=== PATIENT | female | born 1950 | race Caucasian/White ===

== ENCOUNTER 2018-03-18 23:23 | Inpatient (IN) | payer MEDICARE, MEDICAID ==
[~2018-03-18] VITALS: Ht 157.5 cm; Wt 64.4 kg
[2018-03-19] VITALS (76 sets, daily range): BP systolic 69–124; BP diastolic 21–73
[2018-03-19] MEDS ORDERED: SODIUM CHLORIDE 0.9% 1000ML BAG (SEPSIS BOLUS) IV ONE
[2018-03-19 00:02] LABS: CHLORIDE 109 mEq/L (98-107)
[2018-03-19 00:06] LABS: ETHANOL BLOOD < 10 mg/dL
[2018-03-19] MEDS ORDERED: SODIUM CHLORIDE 0.9% 1,000 ML IV ONE ×2 (00:15→02:45)
[2018-03-19] MEDS ORDERED: NOREPINEPHRINE 4 MG in DEXT 5% WATER 246 ML IV ONE (00:30)
[2018-03-19] MEDS ORDERED: PIPERACILLIN/TAZOBACTAM 3.375GM/50ML PREMIX IV ONE (00:30)
[2018-03-19] MEDS: VANCOMYCIN 1 G PREMIX 200 ML IV SCH ×2 (00:30→00:48)
[2018-03-19 00:34] LABS: CLARITY URINE CLOUDY (CLEAR); COLOR URINE YELLOW (YELLOW); KETONES URINE NEGATIVE (NEGATIVE); LEUKOCYTE ESTERASE URINE NEGATIVE (NEGATIVE); NITRITE URINE NEGATIVE (NEGATIVE); OCCULT BLOOD URINE NEGATIVE (NEGATIVE); PROTEIN URINE NEGATIVE (NEGATIVE); SPECIFIC GRAVITY URINE 1.021 (1.005-1.030); UROBILINOGEN URINE 0.2 E.U./dL (0.2-1.0)
[2018-03-19 00:44] LABS: *BARBITURATES SCREEN URINE NEGATIVE (NEGATIVE); *BENZODIAZEPINES SCREEN URINE NEGATIVE (NEGATIVE); *COCAINE SCREEN URINE NEGATIVE (NEGATIVE); METHADONE URINE SCREEN NEGATIVE (NEGATIVE); OPIATES URINE SCREEN NEGATIVE (NEGATIVE)
[2018-03-19 00:45] LABS: *AMPHETAMINES SCREEN URINE NEGATIVE (NEGATIVE); CANNABINOID URINE SCREEN NEGATIVE (NEGATIVE); PHENCYCLIDINE URINE SCREEN NEGATIVE (NEGATIVE)
[2018-03-19] MEDS ORDERED: ASPIRIN 300MG SUPP PR ONE (00:45)
[2018-03-19] MEDS ORDERED: NOREPINEPHRINE 4 MG in DEXT 5% WATER 246 ML IV SCH (00:45)
[2018-03-19 01:58] LABS: INR 1.4; PROTHROMBIN TIME 14.7 sec (9.4-11.6)
[2018-03-19 01:59] LABS: AMMONIA 46 uMol/L (<32)
[2018-03-19 02:02] LABS: HEMATOCRIT. 41.3 % (36.0-48.0); HEMOGLOBIN. 13.2 g/dL (12.0-16.0); MEAN CORPUSCULAR HEMOGLOBIN 31.2 pg (28.0-32.0); MEAN CORPUSCULAR VOLUME 97.4 fL (81.0-99.0); MEAN PLATELET VOLUME 10.7 fl (7.4-10.4); PLATELET 127 x1000/uL (130-400); RED BLOOD CELL COUNT 4.24 mill/uL (4.2-5.4); RED CELL DISTRIBUTION WIDTH 15.1 % (11.6-14.6)
[2018-03-19 02:16] LABS: PLATELET ESTIMATE SLIGHTLY DECREASED
[2018-03-19] MEDS ORDERED: SODIUM CHLORIDE 0.9% 1,000 ML IV SCH (03:47)
[2018-03-19] MEDS ORDERED: DIPHENHYDRAMINE 50MG/ML VIAL IV PRN (04:00)
[2018-03-19] MEDS ORDERED: ACETAMINOPHEN 325MG TABLET PO PRN (04:00)
[2018-03-19] MEDS ORDERED: VANCOMYCIN 1 G PREMIX 200 ML IV SCH (04:00)
[2018-03-19] MEDS ORDERED: LEVOFLOXACIN 500MG PREMIX 100 ML IV SCH ×2 (04:00→06:00)
[2018-03-19] MEDS ORDERED: DEXTROSE 50% WATER 50ML SYRINGE IV PRN ×2 (04:00→19:15)
[2018-03-19] MEDS ORDERED: NOREPINEPHRINE 4 MG in DEXT 5% WATER 246 ML IV PRN ×2 (04:00→04:15)
[2018-03-19] MEDS ORDERED: METF10004 PO (04:32)
[2018-03-19] MEDS ORDERED: MULT-1116 PO (04:32)
[2018-03-19] MEDS ORDERED: ASPI-1158 PO (04:32)
[2018-03-19] MEDS ORDERED: MULT1TAB63 PO (04:32)
[2018-03-19] MEDS ORDERED: SODIUM BICARBONATE 8.4% 1 MEQ/ML 50ML SYR IV SCH ×2 (05:00→07:30)
[2018-03-19 05:49] LABS: HEMATOCRIT. 39.1 % (36.0-48.0); HEMOGLOBIN. 12.5 g/dL (12.0-16.0); MEAN CORPUSCULAR HEMOGLOBIN 31.2 pg (28.0-32.0); MEAN CORPUSCULAR VOLUME 97.7 fL (81.0-99.0); MEAN PLATELET VOLUME 11.5 fl (7.4-10.4); PLATELET 130 x1000/uL (130-400); RED CELL DISTRIBUTION WIDTH 15.1 % (11.6-14.6)
[2018-03-19] MEDS ORDERED: NOREPINEPHRINE 16 MG in DEXT 5% WATER 250 ML IV PRN (06:00)
[2018-03-19 06:02] LABS: CHLORIDE 111 mEq/L (98-107)
[2018-03-19] MEDS: INSULIN LISPRO 100 UNITS/ML SUBCUT SCH ×4 (06:06→22:27)
[2018-03-19] MEDS: BLOOD SUGAR DIAGNOSTIC STRIP TEST SCH ×4 (06:06→20:56)
[2018-03-19] MEDS ORDERED: LIDOCAINE HCL 1% 20ML VIAL (Pyxis) INJ ONE (07:38)
[2018-03-19] MEDS: PANTOPRAZOLE SODIUM 40 MG/VIAL IV SCH (07:48)
[2018-03-19 08:01] LABS: BG BASE EXCESS -12.9 mmol/L (-2.0-2.0); BG CARBOXYHEMOGLOBIN 0.3 % (0.5-1.5); BG DEOXYHEMOGLOBIN 2.9 % (0.0-5.0); BG FRACTION INSPIRED OXYGEN 28; BG HCO3 ACT 9.6 mmol/L (22.0-26.0); BG METHEMOGLOBIN 0.3 % (0.0-1.5); BG OXYGEN SATURATION 97.1 % (92.0-98.5); BG OXYHEMOGLOBIN 96.5 % (94.0-97.0); BG PCO2 16.3 mmHg (35.0-45.0); BG PH 7.387 (7.350-7.450); BG SAMPLE SITE RIGHT RADIAL; BG TOTAL HEMOGLOBIN 12.1 g/dL (12.0-18.0); BG VENT MODE NASAL CANNULA
[2018-03-19 08:46] LABS: NUCLEATED RED BLOOD CELLS 2 /100 WBC
[2018-03-19] MEDS: SODIUM BICARBONATE 50 MEQ in DEXTROSE 5% WATER 1,000 ML IV SCH ×2 (08:46→18:25)
[2018-03-19 08:47] LABS: PLATELET ESTIMATE NORMAL
[2018-03-19] MEDS: PHENYLEPHRINE 40 MG in DEXT 5% WATER 246 ML IV PRN ×3 (08:47→16:44)
[2018-03-19] MEDS: ONDANSETRON HCL 4MG/2ML VIAL IV PRN ×2 (08:48→18:24)
[2018-03-19] MEDS: METRONIDAZOLE 500 MG PREMIX 100 ML IV SCH ×2 (10:00→18:24)
[2018-03-19 10:59] LABS: CARCINO EMBRYONIC ANTIGEN 2.3 ng/ml
[2018-03-19] MEDS ORDERED: NOREPINEPHRINE 16 MG in DEXT 5% WATER 234 ML IV PRN (11:00)
[2018-03-19 11:10] LABS: HEPATITIS B SURFACE ANTIGEN NEGATIVE
[2018-03-19 11:38] LABS: HEPATITIS B CORE AB IGM NEGATIVE
[2018-03-19 11:39] LABS: HEPATITIS A AB IGM NEGATIVE (NEGATIVE)
[2018-03-19] MEDS ORDERED: INSULIN LISPRO 100 UNITS/ML SUBCUT SCH ×2 (13:45→21:00)
[2018-03-19] MEDS ORDERED: CEFTRIAXONE 1 G PREMIX 50 ML IV SCH (14:00)
[2018-03-19 15:27] LABS: CREATINE KINASE 1437 IU/L (26-192)
[2018-03-19] MEDS: CEFTRIAXONE 1 G PREMIX 50 ML IV SCH (16:00)
[2018-03-19] MEDS ORDERED: NOREPINEPHRINE 16 MG in SODIUM CHLORIDE 0.9% 234 ML IV PRN (19:30)
[2018-03-19] MEDS: SODIUM BICARBONATE 50 MEQ in SODIUM CHLORIDE 0.45% 1,000 ML IV SCH (20:54)
[2018-03-19] MEDS: PHENYLEPHRINE 40 MG in SODIUM CHLORIDE 0.9% 246 ML IV PRN ×2 (20:57→23:58)
[2018-03-19] MEDS ORDERED: INSULIN GLARGINE UD 100 UNITS/ML SYR SUBCUT SCH (22:00)
[2018-03-20] VITALS (87 sets, daily range): BP systolic 87–139; BP diastolic 35–110
[2018-03-20] MEDS ORDERED: VANCOMYCIN 750 MG PREMIX 150 ML IV SCH (01:00)
[2018-03-20] MEDS: METRONIDAZOLE 500 MG PREMIX 100 ML IV SCH ×3 (02:43→18:05)
[2018-03-20] MEDS ORDERED: PHENYLEPHRINE 80 MG in DEXT 5% WATER 492 ML IV PRN (03:30)
[2018-03-20 05:33] LABS: AMMONIA 15 uMol/L (<32); HEMATOCRIT. 33.5 % (36.0-48.0); HEMOGLOBIN. 11.2 g/dL (12.0-16.0); MEAN CORPUSCULAR HEMOGLOBIN 31.4 pg (28.0-32.0); MEAN CORPUSCULAR VOLUME 94.1 fL (81.0-99.0); MEAN PLATELET VOLUME 11.3 fl (7.4-10.4); PLATELET 78 x1000/uL (130-400); RED BLOOD CELL COUNT 3.56 mill/uL (4.2-5.4); RED CELL DISTRIBUTION WIDTH 14.6 % (11.6-14.6)
[2018-03-20] MEDS: INSULIN LISPRO 100 UNITS/ML SUBCUT SCH ×4 (06:30→20:49)
[2018-03-20] MEDS: SODIUM BICARBONATE 50 MEQ in SODIUM CHLORIDE 0.45% 1,000 ML IV SCH ×2 (06:36→20:09)
[2018-03-20] MEDS: BLOOD SUGAR DIAGNOSTIC STRIP TEST SCH ×4 (06:37→20:43)
[2018-03-20] MEDS: ONDANSETRON HCL 4MG/2ML VIAL IV PRN (06:47)
[2018-03-20 07:29] LABS: PLATELET ESTIMATE DECREASED
[2018-03-20] MEDS: PHENYLEPHRINE 80 MG in SODIUM CHLORIDE 0.9% 492 ML IV PRN ×2 (08:02→21:48)
[2018-03-20] MEDS: PANTOPRAZOLE SODIUM 40 MG/VIAL IV SCH (09:16)
[2018-03-20 09:30] LABS: BG BASE EXCESS -6.7 mmol/L (-2.0-2.0); BG CARBOXYHEMOGLOBIN 0.3 % (0.5-1.5); BG DEOXYHEMOGLOBIN 6.4 % (0.0-5.0); BG FRACTION INSPIRED OXYGEN 28; BG METHEMOGLOBIN 0.2 % (0.0-1.5); BG OXYGEN SATURATION 93.6 % (92.0-98.5); BG OXYHEMOGLOBIN 93.1 % (94.0-97.0); BG PH 7.473 (7.350-7.450); BG PO2 69.8 mmHg (75.0-100.0); BG SAMPLE SITE RIGHT RADIAL; BG TOTAL HEMOGLOBIN 11.4 g/dL (12.0-18.0); BG VENT MODE NASAL CANNULA
[2018-03-20 10:08] LABS: ALPHA FETOPROTEIN TUMOR MARKER 1.2 ng/mL (0.0-8.3); CANCER ANTIGEN 125 6.9 U/mL (0.0-38.1)
[2018-03-20 11:49] LABS: D-DIMER 23.78 mg/L FEU (<0.50); INR 1.8; PARTIAL THROMBOPLASTIN TIME 51.3 sec (23.4-31.0); PROTHROMBIN TIME 18.7 sec (9.4-11.6)
[2018-03-20] MEDS: CEFTRIAXONE 1 G PREMIX 50 ML IV SCH (14:15)
[2018-03-20] MEDS: SUCRALFATE 1 G/10 ML UDC PO SCH ×2 (17:32→20:49)
[2018-03-20] MEDS: ACETAMINOPHEN 650MG/20.3ML UDC PO PRN (18:06)
[2018-03-20] MEDS: INSULIN GLARGINE UD 100 UNITS/ML SYR SUBCUT SCH (21:50)
[2018-03-21] VITALS (58 sets, daily range): BP systolic 87–179; BP diastolic 42–72
[2018-03-21] MEDS: METRONIDAZOLE 500 MG PREMIX 100 ML IV SCH ×3 (02:37→18:08)
[2018-03-21] MEDS: ACETAMINOPHEN 650MG/20.3ML UDC PO PRN ×2 (05:09→08:42)
[2018-03-21] MEDS: SUCRALFATE 1 G/10 ML UDC PO SCH ×4 (05:33→21:24)
[2018-03-21] MEDS: SODIUM BICARBONATE 50 MEQ in SODIUM CHLORIDE 0.45% 1,000 ML IV SCH (05:34)
[2018-03-21 06:07] LABS: HEMATOCRIT 32.1 % (36.0-48.0); HEMOGLOBIN 10.8 g/dL (12.0-16.0); MEAN CORPUSCULAR HEMOGLOBIN 31.2 pg (28.0-32.0); MEAN CORPUSCULAR VOLUME 93.4 fL (81.0-99.0); RED BLOOD CELL COUNT 3.44 mill/uL (4.2-5.4); RED CELL DISTRIBUTION WIDTH 14.7 % (11.6-14.6)
[2018-03-21 06:12] LABS: PLATELET 40 x1000/uL (130-400)
[2018-03-21] MEDS: INSULIN LISPRO 100 UNITS/ML SUBCUT SCH ×4 (06:21→21:32)
[2018-03-21] MEDS: BLOOD SUGAR DIAGNOSTIC STRIP TEST SCH ×4 (06:21→21:26)
[2018-03-21 06:36] LABS: PHOSPHORUS 2.8 mg/dL (2.5-4.9)
[2018-03-21] MEDS: PANTOPRAZOLE SODIUM 40 MG/VIAL IV SCH (09:16)
[2018-03-21] MEDS ORDERED: POTASSIUM CHLORIDE INJ 40 MEQ in DEXT 5% WATER 250 ML IV ONE (11:30)
[2018-03-21] MEDS: KCL 20MEQ/100ML PREMIX 100 ML IV SCH ×2 (12:59→15:59)
[2018-03-21] MEDS: CEFTRIAXONE 1 G PREMIX 50 ML IV SCH ×2 (14:00→16:18)
[2018-03-21] MEDS: SODIUM CHLORIDE 0.45% 1,000 ML IV SCH (15:42)
[2018-03-21] MEDS: INSULIN GLARGINE UD 100 UNITS/ML SYR SUBCUT SCH (21:33)
[2018-03-22] VITALS (13 sets, daily range): BP systolic 98–144; BP diastolic 42–76
[2018-03-22] MEDS: METRONIDAZOLE 500 MG PREMIX 100 ML IV SCH ×2 (02:12→09:16)
[2018-03-22] MEDS: SODIUM CHLORIDE 0.45% 1,000 ML IV SCH (06:16)
[2018-03-22] MEDS: BLOOD SUGAR DIAGNOSTIC STRIP TEST SCH ×4 (07:30→20:49)
[2018-03-22] MEDS: INSULIN LISPRO 100 UNITS/ML SUBCUT SCH ×4 (08:00→20:52)
[2018-03-22] MEDS: SUCRALFATE 1 G/10 ML UDC PO SCH ×4 (08:38→20:47)
[2018-03-22] MEDS: PANTOPRAZOLE SODIUM 40 MG/VIAL IV SCH (08:38)
[2018-03-22 10:22] LABS: BASOPHILS % 0.5 % (0.0-2.0); EOSINOPHILS % 0.2 % (0.0-5.0); HEMATOCRIT. 31.7 % (36.0-48.0); HEMOGLOBIN. 10.9 g/dL (12.0-16.0); LYMPHOCYTES % 10.3 % (20.0-50.0); MEAN CORPUSCULAR HEMOGLOBIN 32.1 pg (28.0-32.0); MEAN CORPUSCULAR VOLUME 93.7 fL (81.0-99.0); MEAN PLATELET VOLUME 12.3 fl (7.4-10.4); MONOCYTES % 5.4 % (2.0-8.0); NEUTROPHILS % 83.6 % (40.0-76.0); RED BLOOD CELL COUNT 3.39 mill/uL (4.2-5.4); RED CELL DISTRIBUTION WIDTH 15.4 % (11.6-14.6)
[2018-03-22 10:25] LABS: PLATELET 27 x1000/uL (130-400)
[2018-03-22 10:29] LABS: CHLORIDE 110 mEq/L (98-107)
[2018-03-22] MEDS ORDERED: POTASSIUM CHLORIDE 20MEQ/PACKET PO NR (11:45)
[2018-03-22] MEDS: INSULIN GLARGINE UD 100 UNITS/ML SYR SUBCUT SCH (20:53)
[2018-03-23] VITALS (12 sets, daily range): BP systolic 112–149; BP diastolic 62–78
[2018-03-23 06:20] LABS: HEMATOCRIT. 34.6 % (36.0-48.0); HEMOGLOBIN. 11.8 g/dL (12.0-16.0); MEAN CORPUSCULAR HEMOGLOBIN 31.7 pg (28.0-32.0); MEAN CORPUSCULAR VOLUME 92.9 fL (81.0-99.0); RED BLOOD CELL COUNT 3.73 mill/uL (4.2-5.4); RED CELL DISTRIBUTION WIDTH 15.1 % (11.6-14.6)
[2018-03-23] MEDS: BLOOD SUGAR DIAGNOSTIC STRIP TEST SCH ×4 (07:28→20:52)
[2018-03-23] MEDS: INSULIN LISPRO 100 UNITS/ML SUBCUT SCH ×4 (07:28→21:16)
[2018-03-23] MEDS: SUCRALFATE 1 G/10 ML UDC PO SCH ×4 (07:38→20:50)
[2018-03-23 08:13] LABS: PLATELET 23 x1000/uL (130-400)
[2018-03-23 09:05] LABS: PLATELET ESTIMATE MARKEDLY DECREASED
[2018-03-23] MEDS ORDERED: POTASSIUM CHLORIDE 20MEQ/PACKET PO NR (09:30)
[2018-03-23] MEDS: METRONIDAZOLE 500MG TABLET PO SCH ×2 (13:24→20:50)
[2018-03-23] MEDS: INSULIN GLARGINE UD 100 UNITS/ML SYR SUBCUT SCH (21:16)
[2018-03-24] VITALS (12 sets, daily range): BP systolic 110–129; BP diastolic 58–75
[2018-03-24 06:37] LABS: HEMATOCRIT. 34.5 % (36.0-48.0); HEMOGLOBIN. 11.6 g/dL (12.0-16.0); MEAN CORPUSCULAR HEMOGLOBIN 31.3 pg (28.0-32.0); MEAN CORPUSCULAR VOLUME 92.9 fL (81.0-99.0); RED BLOOD CELL COUNT 3.72 mill/uL (4.2-5.4); RED CELL DISTRIBUTION WIDTH 15.1 % (11.6-14.6)
[2018-03-24 06:59] LABS: PLATELET 38 x1000/uL (130-400)
[2018-03-24] MEDS: SUCRALFATE 1 G/10 ML UDC PO SCH ×4 (07:30→21:25)
[2018-03-24] MEDS: BLOOD SUGAR DIAGNOSTIC STRIP TEST SCH ×4 (07:30→21:15)
[2018-03-24] MEDS: INSULIN LISPRO 100 UNITS/ML SUBCUT SCH ×4 (08:00→21:26)
[2018-03-24] MEDS: METRONIDAZOLE 500MG TABLET PO SCH ×2 (09:24→21:26)
[2018-03-24] MEDS: ACETAMINOPHEN 650MG/20.3ML UDC PO PRN (10:35)
[2018-03-24 11:02] LABS: PHOSPHORUS 2.5 mg/dL (2.5-4.9)
[2018-03-24] MEDS ORDERED: LIDOCAINE 5% PATCH TOP SCH (12:15)
[2018-03-24] MEDS: ACETAMINOPHEN 500MG TABLET PO SCH ×2 (12:30→18:00)
[2018-03-24] MEDS ORDERED: ACETAMINOPHEN 650MG/20.3ML UDC PO PRN (12:30)
[2018-03-24] MEDS: METHYL SALICYLATE/MENTHOL CREAM 85GM TOP SCH ×2 (13:00→18:00)
[2018-03-24] MEDS: ACYCLOVIR 400 MG TABLET PO SCH ×2 (14:00→21:26)
[2018-03-24 15:34] LABS: PLATELET ESTIMATE MARKEDLY DECREASED
[2018-03-24] MEDS ORDERED: MAGNESIUM 4 G PREMIX 100 ML IV SCH (17:00)
[2018-03-24] MEDS: INSULIN GLARGINE UD 100 UNITS/ML SYR SUBCUT SCH (23:33)
== END 2018-03-24 23:45 | disposition home health service (06) | DRG 871 ==
LOC: ER 23:59 → EDBD 03-19 02:55 → ENRESERV 03-19 02:55 → MICUSO 03-19 02:55 → ER 03-19 04:34 → MICUNO 03-19 04:59 → 5EST 03-21 15:15
PROVIDERS: ADMIT Internal Medicine; ATTEND Internal Medicine
PROC: 02HV33Z Insertion of Infusion Device into Superior Vena Cava, Percutaneous Approach (ICD-10-PCS; principal; 2018-03-19)
PROC: B548ZZA Ultrasonography of Superior Vena Cava, Guidance (ICD-10-PCS; 2018-03-19)
DX: A41.9 Sepsis, unspecified organism (principal); E43 Unspecified severe protein-calorie malnutrition; R65.21 Severe sepsis with septic shock; J18.9 Pneumonia, unspecified organism; K72.00 Acute and subacute hepatic failure without coma; J96.01 Acute respiratory failure with hypoxia; G93.40 Encephalopathy, unspecified; N17.0 Acute kidney failure with tubular necrosis; D68.9 Coagulation defect, unspecified; N39.0 Urinary tract infection, site not specified; E87.2 Acidosis; E11.65 Type 2 diabetes mellitus with hyperglycemia; D69.6 Thrombocytopenia, unspecified; K52.9 Noninfective gastroenteritis and colitis, unspecified; R13.10 Dysphagia, unspecified; R26.9 Unspecified abnormalities of gait and mobility; D64.9 Anemia, unspecified; M25.561 Pain in right knee; E83.42 Hypomagnesemia; Z90.710 Acquired absence of both cervix and uterus; Z83.3 Family history of diabetes mellitus; Z79.899 Other long term (current) drug therapy; Z79.82 Long term (current) use of aspirin; Z79.84 Long term (current) use of oral hypoglycemic drugs; Z68.26 Body mass index [BMI] 26.0-26.9, adult
CPT/HCPCS: 36415; 36556; 36569; 36600; 51702; 70450; 71045; 71250; 73560; 74176; 76700; 76937; 80048; 80053; 80076; 80305; 81003; 82105; 82140; 82375; 82378; 82550; 82705; 82805; 82962; 83036; 83605; 83690; 83735; 84100; 84443; 84484; 85025; 85027; 85362; 85379; 85384; 85610; 85730; 86304; 86705; 86709; 86803; 86850; 86900; 87015; 87040; 87045; 87086; 87340; 87427; 87449; 87493; 89055; 92610; 93005; 93970; 96365; 96366; 96368; 99291; A6261; C1725; C9113; G0482; J0696; J1815; J1956; J2370; J2405; J3370; J3475; J3480; J3490; J7030; J7040; J7050; J7060; J7070; A4315

== ENCOUNTER 2018-10-23 15:38 | Emergency (ER) | payer MEDICAID, MEDICARE ==
[~2018-10-23] VITALS: Ht 154.9 cm; Wt 55.0 kg
[~2018-10-23 15:38] MED LIST: ASPI-1158 PO; METF-416 PO; MULT-1116 PO; MULT1TAB63 PO
[2018-10-23] MEDS ORDERED: KETOROLAC 30MG/ML VIAL IM ONE (17:15)
[2018-10-23 18:03] VITALS: BP 121/58
== END 2018-10-23 18:05 | disposition home or self-care (01) ==
LOC: ER 15:38
DX: S70.01XA Contusion of right hip, initial encounter (principal); M25.551 Pain in right hip; E11.9 Type 2 diabetes mellitus without complications; I10 Essential (primary) hypertension; E78.00 Pure hypercholesterolemia, unspecified; W01.0XXA Fall on same level from slipping, tripping and stumbling without subsequent striking against object, initial encounter; Y93.9 Activity, unspecified; Y92.9 Unspecified place or not applicable; Z79.82 Long term (current) use of aspirin
CPT/HCPCS: 73502; 96372; 99283; J1885

== ENCOUNTER 2018-11-07 09:39 | Emergency (ER) | payer MEDICARE ==
[~2018-11-07] VITALS: Ht 152.4 cm; Wt 58.0 kg
[2018-11-07] MEDS ORDERED: KETOROLAC 30MG/ML VIAL IM ONE (14:45)
[2018-11-07 16:49] VITALS: BP 104/63
== END 2018-11-07 17:30 | disposition home or self-care (01) ==
LOC: ER 09:39
DX: M16.11 Unilateral primary osteoarthritis, right hip (principal); E11.9 Type 2 diabetes mellitus without complications; I10 Essential (primary) hypertension; E78.00 Pure hypercholesterolemia, unspecified; Z79.82 Long term (current) use of aspirin; Z79.899 Other long term (current) drug therapy
CPT/HCPCS: 72170; 96372; 99283; J1885

== ENCOUNTER 2020-11-11 18:46 | Emergency (ER) | payer MEDICARE, MEDICAID ==
[~2020-11-11] VITALS: Ht 152.4 cm; Wt 58.2 kg
[~2020-11-11 18:46] MED LIST changes: -ASPI-1158 PO; +ASPI-1406 PO
[2020-11-11 19:55] LABS: BASOPHILS % 0.9 % (0.0-2.0); EOSINOPHILS % 3.7 % (0.0-5.0); HEMATOCRIT. 33.1 % (36.0-48.0); HEMOGLOBIN. 11.3 g/dL (12.0-16.0); LYMPHOCYTES % 37.3 % (20.0-50.0); MEAN CORPUSCULAR HEMOGLOBIN 31.1 pg (28.0-32.0); MEAN CORPUSCULAR VOLUME 91.5 fL (81.0-99.0); MEAN PLATELET VOLUME 9.7 fl (7.4-10.4); NEUTROPHILS % 50.1 % (40.0-76.0); PLATELET 180 x1000/uL (130-400); RED BLOOD CELL COUNT 3.62 mill/uL (4.2-5.4)
[2020-11-11 19:58] LABS: CHLORIDE 105 mEq/L (98-107)
[2020-11-11] MEDS ORDERED: VALA100044 MT (22:33)
[2020-11-11] MEDS ORDERED: MED4 MT (22:34)
[2020-11-11] MEDS ORDERED: MINE3.5O4 OP (22:35)
[2020-11-11] MEDS ORDERED: ERYTHROMYCIN BASE 0.5% OPHTH OINT 3.5GM EACHEYE SCH (22:45)
[2020-11-11 22:56] VITALS: BP 153/55
== END 2020-11-11 23:08 | disposition home or self-care (01) ==
LOC: ER 18:46
DX: G51.0 Bell's palsy (principal); E11.65 Type 2 diabetes mellitus with hyperglycemia; I10 Essential (primary) hypertension; Z79.82 Long term (current) use of aspirin
CPT/HCPCS: 36415; 71045; 80048; 82962; 84484; 85025; 93005; 99285

== ENCOUNTER 2023-01-17 16:12 | Emergency (ER) | payer MEDICAID, MEDICARE ==
[~2023-01-17] VITALS: Ht 144.8 cm; Wt 51.8 kg
[~2023-01-17 16:12] MED LIST changes: +MED4 MT; +MINE3.5O4 OP; +MULT-624 PO; -MULT1TAB63 PO; +VALA100044 MT
[2023-01-17] MEDS ORDERED: ONDANSETRON 4MG ODT PO STA (17:00)
[2023-01-17] MEDS ORDERED: DICYCLOMINE 10 MG/5 ML ORAL SYR PO STA (17:00)
[2023-01-17] MEDS ORDERED: VISCOUS LIDOCAINE 2% 15 ML UDC PO STA (17:00)
[2023-01-17] MEDS ORDERED: MAGNESIUM/ALUMINUM HYDROXIDE/SIMETHICONE 30ML UDC PO STA (17:00)
[2023-01-17 17:10] LABS: BASOPHILS % 0.3 % (0.0-2.0); EOSINOPHILS % 1.9 % (0.0-5.0); HEMATOCRIT. 33.6 % (36.0-48.0); HEMOGLOBIN. 11.3 g/dL (12.0-16.0); LYMPHOCYTES % 24.6 % (20.0-50.0); MEAN CORPUSCULAR HEMOGLOBIN 30.7 pg (28.0-32.0); MEAN CORPUSCULAR VOLUME 91.4 fL (81.0-99.0); MEAN PLATELET VOLUME 10.3 fl (7.4-10.4); MONOCYTES % 6.8 % (2.0-8.0); NEUTROPHILS % 66.4 % (40.0-76.0); PLATELET 169 x1000/uL (130-400); RED BLOOD CELL COUNT 3.68 mill/uL (4.2-5.4); RED CELL DISTRIBUTION WIDTH 13.1 % (11.6-14.6)
[2023-01-17 17:20] LABS: CHLORIDE 101 mEq/L (98-107)
[2023-01-17 17:27] LABS: CLARITY URINE CLEAR (CLEAR); COLOR URINE YELLOW (YELLOW); KETONES URINE NEGATIVE (NEGATIVE); LEUKOCYTE ESTERASE URINE TRACE (NEGATIVE); NITRITE URINE POSITIVE (NEGATIVE); OCCULT BLOOD URINE NEGATIVE (NEGATIVE); PROTEIN URINE NEGATIVE (NEGATIVE); SPECIFIC GRAVITY URINE 1.029 (1.005-1.030); UROBILINOGEN URINE 0.2 E.U./dL (0.2-1.0)
[2023-01-17] MEDS ORDERED: CEFTRIAXONE 1GM PREMIX 50 ML IV ONE ×2 (18:15→19:00)
[2023-01-17] MEDS ORDERED: SODIUM CHLORIDE 0.9% 1,000 ML IV ONE (18:15)
[2023-01-17] MEDS ORDERED: ONDANSETRON 4MG ODT PO SCH (19:00)
[2023-01-17] MEDS ORDERED: VISCOUS LIDOCAINE 2% 15 ML UDC PO SCH (19:00)
[2023-01-17] MEDS ORDERED: MAGNESIUM/ALUMINUM HYDROXIDE/SIMETHICONE 30ML UDC PO SCH (19:00)
[2023-01-17] MEDS ORDERED: CEFP200T13 MT (21:29)
[2023-01-17 21:35] VITALS: BP 130/55
[2023-01-17] MEDS ORDERED: IOHEXOL-300 100 ML BOTTLE ONE (21:54)
== END 2023-01-17 22:29 | disposition home or self-care (01) ==
LOC: ER 16:12
DX: N39.0 Urinary tract infection, site not specified (principal); E11.65 Type 2 diabetes mellitus with hyperglycemia; I10 Essential (primary) hypertension; Z90.710 Acquired absence of both cervix and uterus; Z79.899 Other long term (current) drug therapy
CPT/HCPCS: 36415; 74177; 76700; 80053; 81003; 83690; 85025; 87077; 87086; 87186; 96374; 99285; J0696; J7030; Q0162; Q9967; Z7610

== ENCOUNTER 2025-06-06 13:02 | Emergency (ER) | payer MEDICARE, MEDICAID ==
[~2025-06-06] VITALS: Ht 149.9 cm; Wt 64.0 kg
[~2025-06-06 13:02] MED LIST changes: +CEFP200T13 MT; -MED4 MT; +METH4TAB95 MT
[2025-06-06 13:16] VITALS: O2SAT 100
[2025-06-06] MEDS ORDERED: ACET-2708 MT (15:13)
[2025-06-06] MEDS ORDERED: ACETAMINOPHEN 325MG TABLET PO ONE (15:15)
[2025-06-06 16:26] VITALS: BP 142/46; PULSE 71; RESP 12; TEMP 36.7; O2SAT 100
== END 2025-06-06 16:41 | disposition home or self-care (01) ==
LOC: ER 13:10
DX: M25.561 Pain in right knee (principal); I10 Essential (primary) hypertension; E11.9 Type 2 diabetes mellitus without complications; Z90.710 Acquired absence of both cervix and uterus; Z79.84 Long term (current) use of oral hypoglycemic drugs; Z79.82 Long term (current) use of aspirin; Z79.624 Long term (current) use of inhibitors of nucleotide synthesis; W01.0XXA Fall on same level from slipping, tripping and stumbling without subsequent striking against object, initial encounter; Y93.01 Activity, walking, marching and hiking; Y92.89 Other specified places as the place of occurrence of the external cause; Y99.8 Other external cause status
CPT/HCPCS: 73560; 99283